=== PATIENT | male | born 1995 | race Caucasian/White ===

== ENCOUNTER 2017-12-21 10:35 | Emergency (ER) | payer BC, MEDICAID ==
[2017-12-21 11:29] VITALS: BP 134/57
--- NOTE | 2017-12-21 11:30 | UC ---
Throat Pain/Nasal Raj HPI - HPI Summary HPI Summary: 1 day of cough, sore throat and malaise. The cough is mild. THe sore throat is worsening. No known fever. He has chronically enlarged tonsils. NO vomiting or diarrhea. - History of Current Complaint Stated Complaint: SORE THROAT, ACHEY, CONGESTION Time Seen by Provider: 12/21/17 11:23 Hx Obtained From: Patient Onset/Duration: Gradual Onset, Lasting Days Severity: Moderate Cough: Nonproductive Associated Signs & Symptoms: Positive: Dysphagia. Negative: Wheezing, Hoarseness, Sinus Discomfort, Nasal Discharge, Fever, Vomiting, Rash - Epiglottits Risk Factors Epiglottis Risk Factors: Negative - Allergies/Home Medications Allergies/Adverse Reactions: Allergies Allergy/AdvReac Type Severity Reaction Status Date / Time No Known Allergies Allergy Verified 12/21/17 11:29 PMH/Surg Hx/FS Hx/Imm Hx Previously Healthy: No - mononucleosis in the past. - Surgical History Surgical History: None - Family History Known Family History: Positive: None - Social History Occupation: Employed Full-time Alcohol Use: None Substance Use Type: Other Substance Use Comment - Amount & Last Used: [employer]INKS Smoking Status (MU): Never Smoked Tobacco Have You Smoked in the Last Year: No Review of Systems Constitutional: Fatigue ENT: Sore Throat Respiratory: Cough Psychological: Negative All Other Systems Reviewed And Are Negative: Yes Physical Exam Triage Information Reviewed: Yes Appearance: Well-Appearing, No Pain Distress, Well-Nourished Eye Exam: Normal Eyes: Positive: Conjunctiva Clear ENT: Positive: Pharyngeal erythema, TMs normal, Tonsillar swelling, Uvula midline. Negative: Nasal congestion, Nasal drainage, Tonsillar exudate, Trismus , Muffled voice Neck: Positive: Supple, Nontender, No Lymphadenopathy. Negative: Nuchal Rigidity Respiratory: Positive: Lungs clear, Normal breath sounds, No respiratory distress, No accessory muscle use. Negative: Respiratory distress, Decreased breath sounds, Accessory muscle use, Crackles, Rhonchi, Stridor, Wheezing Cardiovascular: Positive: No Murmur, Pulses Normal, Brisk Capillary Refill. Negative: Tachycardia Abdomen Description: Positive: Soft. Negative: Distended, Guarding Musculoskeletal: Positive: Strength Intact, ROM Intact, No Edema Neurological: Positive: Alert, Muscle Tone Normal, Fatigued Psychological: Positive: Age Appropriate Behavior Skin: Negative: rashes Throat Pain/Nasal Course/Dx - Course Course Of Treatment: Constitutional symptoms with ST. possible mono, possible strep. He was told that he would not be able to return to work in the [employer] until cleared by pcp if mono is positive due to risk of splenic rupture. Pt undersstool well. - Differential Dx/Diagnosis Provider Diagnoses: Strep throat. sore throat. Discharge - Sign-Out/Discharge Documenting (check all that apply): Discharge - Discharge Plan Condition: Good Disposition: HOME Prescriptions: Amoxicillin PO (*) [Amoxicillin 500 MG CAP*] 500 mg PO TID #30 cap Patient Education Materials: Strep Throat (ED) Forms: *Work Release Referrals: Yuliya Weber MD. [Primary Care Provider] - - Billing Disposition and Condition Condition: GOOD Disposition: HOME
== END 2017-12-21 12:27 | disposition home or self-care (01) ==
LOC: UCCORT 10:35
DX: J02.0 Streptococcal pharyngitis (principal)
CPT/HCPCS: 36415; 86308; 87651; 99212; G0463